=== PATIENT | female | born 1980 | race Caucasian/White ===

== ENCOUNTER 2020-09-11 07:54 | Outpatient (REF) | payer BC, SELFPAY ==
[2020-09-11 09:34] LABS: MANUAL DIFF FLAG NO
[2020-09-11 10:06] LABS: Basophils Percent Auto 0.6 % (0-2); Eosinophils Absolute Auto 0.1 X10*3/uL (0.0-0.4); Eosinophils Percent Auto 1.9 % (0-4); Hematocrit 41.1 % (37-47); Hemoglobin 13.3 g/dl (12.0-16.0); Imm Gran Abs Auto 0.01 X10*3/uL (0.00-0.03); Imm Gran Pct Auto 0.3 % (0.0-0.4); Lymphocytes Absolute Auto 1.4 X10*3/uL (1.2-4.9); Mean Corpuscular HGB Conc 32.4 g/dl (31.0-35.0); Mean Corpuscular Hemoglobin 29.6 pg (27.0-33.0); Mean Corpuscular Volume 91.5 fL (80-98); Mean Platelet Volume 9.9 fL (9.4-12.3); Monocytes Absolute Auto 0.3 X10*3/uL (0.1-1.2); Monocytes Percent Auto 9.3 % (2-11); Neutrophils Absolute Auto 1.5 X10*3/uL (2.0-8.3); Neutrophils Percent Auto 45.9 % (45-73); Platelet Count 228 X10*3/uL (160-400); Red Blood Count 4.49 X10*6/uL (4.20-5.50); Red Cell Distribution Width 12.2 % (11.0-16.0); White Blood Count 3.2 X10*3/uL (4.8-10.8)
[2020-09-11 10:22] LABS: Alanine Aminotransferase 25 U/L (0-31); Albumin Level 4.6 g/dL (3.5-5.0); Alkaline Phosphatase 70 U/L (39-117); Anion Gap 11 (12-20); Aspartate Amino Transferase 17 U/L (5-31); Bilirubin Total 0.7 mg/dL (0.0-1.0); Blood Urea Nitrogen 12 mg/dL (9-16); Calcium 9.6 mg/dL (8.4-10.2); Carbon Dioxide 25 mmol/L (22-29); Chloride 107 mmol/L (96-108); Cholesterol 179 mg/dL; Estimated Glomerular Filt Rate > 60; Glucose Fasting 95 mg/dL (60-99); HDL Cholesterol 40 mg/dL; Iron 87 mcg/dL (30-160); LDL Cholesterol Calculated 104 mg/dl; Percent Iron Saturation 24 % (15-50); Potassium 4.3 mmol/L (3.3-5.1); Sodium 139 mmol/L (135-145); Total Iron Binding Capacity 361 mcg/dL (228-428); Total Protein 7.4 g/dL (6.5-8.0); Triglycerides 176 mg/dL; Unsaturated Iron Binding 274 ug/dL
[2020-09-11 10:28] LABS: TSH reflex Free T4 1.24 uIU/mL (0.32-4.0)
== END 2020-09-11 07:55 | disposition home or self-care (01) ==
LOC: HO.LAB 07:54
PROVIDERS: Visit Provider Family Medicine
DX: Z00.00 Encounter for general adult medical examination without abnormal findings (principal)
CPT/HCPCS: 36415; 80053; 80061; 83540; 84443; 85025

== ENCOUNTER 2022-03-06 08:50 | Outpatient (REF) | payer BC, SELFPAY ==
--- NOTE | ~2022-03-06 | MM_ITS ---
EXAMINATION: MM SCREENING DIGITAL BREAST TOMOSYNTHESIS, BILATERAL CLINICAL INFORMATION: Screening. Asymptomatic. Age 41. No prior breast imaging. No known family history breast cancer. The lifetime risk of breast cancer based on the Tyrer-Cuzick Model is 12%. COMPARISON: None (current study represents initial baseline exam). TECHNIQUE: Digital breast tomosynthesis is performed in both the craniocaudal and mediolateral oblique views along with computer-aided detection (CAD). Synthesized 2D images are generated from the tomosynthesis. FINDINGS: There are scattered areas of fibroglandular density (ACR BI-RADS breast composition Category b). There are no significant masses, abnormal calcifications, or other abnormalities. Breast tissue composition borders. No architectural abnormality. The axilla and skin contours are unremarkable. MM/MM tomosynthesis screening BI IMPRESSION: No mammographic evidence of malignancy. ASSESSMENT: BI-RADS 1: Negative RECOMMENDATION: Routine annual mammography screening. This patient's information was entered into a reminder system with a target due date for their next mammogram.
== END 2022-03-06 08:51 | disposition home or self-care (01) ==
LOC: HO.MAMMO 08:50
PROVIDERS: Visit Provider Hospitalist
DX: Z12.31 Encounter for screening mammogram for malignant neoplasm of breast (principal)
CPT/HCPCS: 77063; 77067

== ENCOUNTER 2022-12-06 06:06 | Outpatient (REF) | payer BC, SELFPAY ==
[2022-12-08 22:44] LABS: TS Negative Control Passed; TS Panel A 1; TS Panel B 0; TS Positive Control Passed; TSpotTB Negative (Negative)
== END 2022-12-06 06:07 | disposition home or self-care (01) ==
LOC: HO.LAB 06:06
PROVIDERS: Absent Provider Nurse Practitioner Family; PCP Hospitalist; Visit Provider Hospitalist
DX: Z11.1 Encounter for screening for respiratory tuberculosis (principal)
CPT/HCPCS: 36415; 86481

== ENCOUNTER 2023-03-08 15:47 | Outpatient (AMB) | payer BC, SELFPAY ==
[2023-03-08 16:04] VITALS: BP 126/72; PULSE 89; O2SAT 98; BMI 30.6
--- NOTE | 2023-03-08 16:04 | A.OFFPC_ITS ---
Vital Signs 03/08/23 16:04 Height 5 ft 4 in Weight 178 lb 6 oz BMI 30.6 BP 126/72 Blood Pressure Location Lt brachial Position Sitting Pulse 89 Pulse Source Pulse Oximeter Pulse Oximetry (%) 98 Oxygen Delivery Method Room Air Intake Visit Reasons: Physical exam Intake Note: Patient is here for a physical, and has a cough for the last 2 days. Allergies No Known Allergies Allergy (Verified 03/08/23 16:05) Tobacco use date assessed: 03/08/23 Dental Screening Dental Screen Date: 03/08/23 Did you have a dental visit in the last 12 months?: Yes Did you have a dental problem in the last 6 months where you did not have access to dental care?: No Was dental information given to patient?: Patient has dentist HPI Physical exam HPI Details 42 y/o female presents for a CPE with f/ u labs and health maintenance. No recent labs to review. Pt has complaints of a cough. She reports R wrist discomfort and thinks it correlates with computer use. She denies any pain into her hands/fingers. PMHx: Healthy FHx: Brother: CAD Dad: Healthy. SocHx: Nonsmoker. EtOH 1-2x a month. No drugs. HPI Comments History of Present Illness Details Documentation assistance for Gonzalo Lal MD, was provided by Morgan Childs,? Terminal Operations Supervisor on 03/08/2023 4:42 PM EST. I, Dr. Lal, have read, observed, and verified documentation.? [facility] Family History Mother No problems noted. Father No problems noted. 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 1. Little interest or pleasure in doing things: not at all 2. Feeling down, depressed, or hopeless: not at all 3. Trouble falling or staying asleep, or sleeping too much: not at all 4. Feeling tired or having little energy: not at all 5. Poor appetite or overeating: not at all 6. Feeling bad about yourself - or that you are a failure or have let yourself or your family down: not at all 7. Trouble concentrating on things, such as reading the newspaper or watching television: not at all 8. Moving or speaking so slowly that other people could have noticed. Or the opposite - being so fidgety or restless that you have been moving around a lot more than usual: not at all 9. Thoughts that you would be better off or of hurting yourself in some way: not at all Total score: 0 Source: Developed by Drs. Rishabh Cartagena, Ruth Washington, Ryan Collins and colleagues, with an educational adore from [employer]. Thrive Questionnaire Date Thrive assessed: 03/08/23 I am a: Patient What is your living situation today?: I have a steady place to live Within the past 12 months, did the food you bought not last and you didn't have the money to get more?: Never true Within the past 12 months, did you worry whether your food would run out before you got money to buy more?: Never true Do you have trouble paying for medicines?: No Do you have trouble getting transportation to medical appointments?: No Do you have trouble paying your heating and electricity bill?: No Do you have trouble taking care of your child, family member or friend?: No Do you have trouble with day-to-day activities such as bathing, preparing meals, shopping, managing finances, etc.?: No Are you currently unemployed and looking for a job?: No Are you interested in more education?: No AUDIT C Alcohol Use Questionnaire (AUDIT-C) 1. How often do you have a drink containing alcohol?: Monthly or less 2. How many drinks containing alcohol do you have on a typical day when you are drinking?: 1 or 2 3. How often do you have six or more drinks on one occasion?: Never Total Score: 1 DANI-7 AMB Questionnaire DANI-7 Date DANI - 7 assessed: 03/08/23 Feeling nervous, anxious, or on edge: 0 = Not at all Not being able to stop or control worryin = Not at all Worrying too much about different things: 0 = Not at all Trouble relaxin = Not at all Being so restless that it is hard to sit still: 0 = Not at all Becoming easily annoyed or irritable: 0 = Not at all Feeling afraid as if something awful might happen: 0 = Not at all Total DANI-7 score (0-4 normal; 5-9 mild; 10-14 moderate; 15-21 severe): 0 Source: Developed by Drs. Rishabh Cartagena, Ruth Washington, Ryan Collins and colleagues, with an educational adore from [employer]. Review of Systems Const Denies chills, Denies fatigue, Denies fever(s), Denies headache(s) and Denies weakness Eyes Denies change in vision ENT Denies dizziness, Denies headache(s), Denies hearing loss, Denies nasal congestion, Denies sinus pain, Denies sinus pressure and Denies sore throat Card Denies chest pain, Denies lightheadedness, Denies dyspnea and Denies other (palpitations) Resp Reports cough, Denies dyspnea and Denies wheezing GI Denies abdominal pain, Denies melena, Denies hematochezia, Denies change in bowel habits, Denies dyspepsia and Denies nausea Denies hematuria and Denies dysuria Musc Details: R wrist pain Denies abnormal gait, Denies myalgias, Denies arthralgias, Denies numbness and Denies tingling Skin/Breast Denies rash, Denies unusual bruising and Denies wounds Neuro Denies abnormal gait, Denies dizziness, Denies headache(s), Denies memory loss, Denies numbness, Denies Sensory deficit (Neuro), Denies tingling and Denies weakness Psych Denies anxiety, Denies depression and Denies memory loss Endo Denies cold intolerance, Denies fatigue, Denies heat intolerance, Denies polydipsia and Denies polyuria Nam/Lymph Denies easy bleeding and Denies easy bruising Aller/Immun Denies wheezing Physical exam (Primary Care) Vital Signs: Last Vital Signs Pulse 89 03/08/23 16:04 BP 126/72 03/08/23 16:04 Pulse Ox 98 03/08/23 16:04 Oxygen Delivery Method Room Air 03/08/23 16:04 BMI result Body Mass Index 30.6 Tobacco/Smoking Status: Tobacco use Status Tobacco use date assessed 03/08/23 03/08/23 16:07 Patient Tobacco Use Status Never used Tobacco 03/08/23 16:07 e-Cigarette/Vaping Use Never Used 03/08/23 16:07 PHQ-9: PHQ-9 Score PHQ-9: Total score 0 03/08/23 16:25 Thrive Assessment: Date of Thrive Assessment Date Thrive assessed 03/08/23 03/08/23 16:17 Const General: no acute distress, well developed, alert and awake Nutritional Appearance: well nourished Orientation/consciousness: patient oriented x3 HENMT Head: Yes normocephalic and Yes atraumatic Ears: hearing grossly normal bilaterally and TM's normal bilaterally General nose exam: Normal external nose present and Normal nares present Mouth: Normal oral and palatal mucosa present and moist mucous membranes Teeth and gingiva: dentition normal Throat: Yes posterior oropharynx normal Eyes General: appearance normal, both eyes and all related structures Pupils: Equal, round and reactive pupils present and Pupil accommodation reflex normal EOM: EOMs intact bilaterally Neck Neck: Yes normal visual inspection, Yes no lymphadenopathy and Yes trachea midline Thyroid: Thyroid normal Carotids: no bruits Lymphatic: no lymphadenopathy noted Chest Chest palpation & inspection: normal inspection of the chest Resp Effort & Inspection: normal respiratory effort Auscultation: clear to auscultation bilaterally Cardio Rate: regular rate Rhythm: regular rhythm Heart sounds: S1 normal heart sound present, S2 normal heart sound present, no gallops, no murmurs and no rubs Bruits: no abdominal aortic bruits and no carotid bruits GI Palpation (GI): No Abdominal aortic bruit present, Soft to palpation, nontender, No hepatosplenomegaly present and No Rebound tenderness present Auscultation: normal bowel sounds General: Yes no CVA tenderness Back/Spine/Pelvis Back: no CVA tenderness Cervical Spine: cervical ROM normal and No Cervical spine tenderness Thoracic/Lumbar Spine: thoraco-lumbar ROM normal, No pain with thoraco-lumbar ROM, No thoracic spinal tenderness and No lumbar spinal tenderness Skin Lesions: no lesions Rashes: no rashes Trauma: no lacerations or abrasions Wounds: no wounds Nails: normal Neuro General: patient oriented x3 Cranial nerves: Yes Equal, round and reactive pupils present Cognition (Neuro): normal cognition Gait exam (Neuro): Normal gait present Motor exam (neuro): 5/5 motor strength present throughout Sensory Exam: No Sensory deficit (Neuro) Deep tendon reflexes (DTR's): Right patellar reflex intensity grade: 2+ and Left patellar reflex intensity grade: 2+ Extrem General: Yes normal to inspection and No edema Psych Appearance: grossly normal Affect: normal affect Attitude: cooperative Thought process: Normal thought process present Assessment and Plan Assessment & Plan (1) Annual physical exam: Code(s): Z00.00 - Encounter for general adult medical examination without abnormal findings Plan: 42-year-old?female?presents?for?complete?physical?exam Encouraged?healthy?diet?with?active?lifestyle?and?plenty?of?exercise (2) Right wrist pain: Code(s): M25.531 - Pain in right wrist Plan: Mild?circumferential?wrist?pain?with?use?of?keyboard?and?mouse?at?work. Encouraged?change?of?environment?or?work?tool She?can?also?try?support?with?a?wrist?brace?or?Jalen?bandage Encouraged?ibuprofen/NSAIDs?and?also?ice If?not?improving?she?can?let?me?know?and?we?melissa l?discuss?a?referral?to?occupational?therapy (3) Cough: Code(s): R05.9 - Cough, unspecified Plan: Mild?dry?cough No?fever No?nasal?congestion?or?postnasal?drip Lungs?are?clear. She?can?use?humidified?air Let?me?know?if?this?worsens (4) Breast cancer screening by mammogram: Code(s): Z12.31 - Encounter for screening mammogram for malignant neoplasm of breast Plan: Has?her?mammogram?scheduled (5) Screening for cervical cancer: Code(s): Z12.4 - Encounter for screening for malignant neoplasm of cervix Plan: Followed?by?her?solar photovoltaic designer?and?up-to-date (6) Tuberculosis screening: Code(s): Z11.1 - Encounter for screening for respiratory tuberculosis Plan: Recent?TB?screening?was?negative Orders: Orders Lipid Panel Today Z00.00 - Encounter for general adult medical examination without abnormal findings Microalbumin, Random (w Creat) Today I10 - Essential (primary) hypertension TSH reflex Free T4 Today Z00.00 - Encounter for general adult medical examination without abnormal findings Comprehensive [place]. Panel Fast Today Z00.00 - Encounter for general adult medical examination without abnormal findings UA and rflx microscopic Today Z00.00 - Encounter for general adult medical examination without abnormal findings Coding Level of Care Code Est Pt Level 3 (03804) Est Pt Prev Care 40-64y(76312) Diagnoses Annual physical exam Z00.00 Right wrist pain M25.531 Cough R05.9 Breast cancer screening by mammogram Z12.31 Screening for cervical cancer Z12.4 Tuberculosis screening Z11.1
== END 2023-03-08 16:46 | disposition home or self-care (01) ==
PROVIDERS: PCP Hospitalist; Visit Provider Family Medicine
DX: Z00.00 Encounter for general adult medical examination without abnormal findings (principal); M25.531 Pain in right wrist; R05.9 Cough, unspecified; Z12.31 Encounter for screening mammogram for malignant neoplasm of breast; Z12.4 Encounter for screening for malignant neoplasm of cervix; Z11.1 Encounter for screening for respiratory tuberculosis
CPT/HCPCS: 99396

== ENCOUNTER 2023-04-22 08:30 | Outpatient (REF) | payer BC, SELFPAY ==
[2023-04-22 10:49] LABS: Appearance Urine Clear; Color Urine Yellow; Glucose Urine UA Negative (Negative); Leukocyte Esterase Urine Moderate (2+) (Negative); Nitrite Urine Negative (Negative); PH 6.5 (5.0-9.0); Specific Gravity - Urine 1.025 (1.005-1.025); UMIC TRIGGER UA YES; Urine Blood Large (3+) (Negative); Urine Ketones Negative (Negative); Urine Protein Trace mg/dL (Neg-Trace)
[2023-04-22 10:52] LABS: Alanine Aminotransferase 17 U/L (0-31); Albumin Level 4.6 g/dL (3.5-5.0); Alkaline Phosphatase 66 U/L (39-117); Anion Gap 10 (12-20); Aspartate Amino Transferase 15 U/L (5-31); Bilirubin Total 0.9 mg/dL (0.0-1.0); Blood Urea Nitrogen 16 mg/dL (9-16); Calcium 9.6 mg/dL (8.4-10.2); Carbon Dioxide 27 mmol/L (22-29); Chloride 107 mmol/L (96-108); Cholesterol 198 mg/dL (<200); Estimated Glomerular Filt Rate > 60; Glucose Fasting 100 mg/dL (60-99); HDL Cholesterol 38 mg/dL (>40); LDL Cholesterol Calculated 125 mg/dL (<100); Potassium 4.3 mmol/L (3.3-5.1); Sodium 140 mmol/L (135-145); Total Protein 7.7 g/dL (6.5-8.0); Triglycerides 175 mg/dL (<150)
[2023-04-22 11:10] LABS: TSH reflex Free T4 0.83 uIU/mL (0.32-4.0)
[2023-04-22 11:18] LABS: Bacteria Urine Trace (None Seen); Hyaline Casts Urine 0-2 /LPF (0-2); RBC Urine >20 /HPF (0-2); WBC Urine 21-50 /HPF (0-5)
[2023-04-22 11:29] LABS: Creatinine Urine 155.35 mg/dL; Microalbum/Creatinine Ratio Ur 30.8 ug/mg cr (<30)
== END 2023-04-22 08:31 | disposition home or self-care (01) ==
LOC: HO.LAB 08:30
PROVIDERS: PCP Family Medicine; Visit Provider Family Medicine
DX: Z00.00 Encounter for general adult medical examination without abnormal findings (principal); I10 Essential (primary) hypertension
CPT/HCPCS: 36415; 80053; 80061; 81001; 82043; 82570; 84443

== ENCOUNTER → 2023-05-14 08:15 | Outpatient (BNV) | payer BC, SELFPAY | PROVIDERS: PCP Family Medicine; Visit Provider Radiology Diagnostic Radiology | DX: Z12.31 Encounter for screening mammogram for malignant neoplasm of breast (principal) | CPT/HCPCS: 77063; 77067 ==

== ENCOUNTER 2023-05-14 08:43 | Outpatient (REF) | payer BC, SELFPAY | END 2023-05-14 08:44 | disposition home or self-care (01) | LOC: HO.MAMMO 08:43 | PROVIDERS: PCP Family Medicine; Visit Provider Family Medicine | DX: Z12.31 Encounter for screening mammogram for malignant neoplasm of breast (principal) | CPT/HCPCS: 77063; 77067 ==

== ENCOUNTER 2023-06-29 15:44 | Outpatient (AMB) | payer BC, SELFPAY ==
--- NOTE | 2023-06-29 15:42 | A.OFFPC_ITS ---
Intake Visit Reasons: Follow up cpe lab Appliance Technician Required: No Allergies No Known Allergies Allergy (Verified 06/29/23 15:43) Tobacco use date assessed: 03/08/23 Dental Screening Dental Screen Date: 03/08/23 Did you have a dental visit in the last 12 months?: Yes Did you have a dental problem in the last 6 months where you did not have access to dental care?: No Was dental information given to patient?: Patient has dentist HPI Follow up cpe lab HPI Details 42 y/o female presents to f/u CPE-labs v ia telemedicine. Labs were drawn 04/22/23. Reviewed labs with pt. Elevated fasting glucose of 100. Triglycerides 175. TC 198. LDL 125. HDL low at 38. Microalb/Creat ratio 30.8. Trace urine bacteria seen. She denies any symptoms. Pt notes urine samle was given during period. Asymptomatic Mammogram in May was fine. [facility] Family History Mother No problems noted. Father No problems noted. 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 Rishabh Cartagena, Ruth Washington, Ryan Collins and colleagues, with an educational adore from [employer]. Review of Systems Const Denies chills, Denies fatigue, Denies fever(s), Denies headache(s) and Denies weakness ENT Denies dizziness and Denies headache(s) Card Denies dyspnea Resp Denies cough, Denies dyspnea, Denies wheezing and Denies other (shortness of breath) Musc Denies numbness and Denies tingling Neuro Denies dizziness, Denies headache(s), Denies numbness, Denies tingling and Denies weakness Psych Denies anxiety and Denies depression Endo Denies fatigue Aller/Immun Denies wheezing Physical exam (Primary Care) Tobacco/Smoking Status: Tobacco use Status Tobacco use date assessed 03/08/23 06/29/23 15:43 Patient Tobacco Use Status Never used Tobacco 06/29/23 15:43 e-Cigarette/Vaping Use Never Used 06/29/23 15:43 Thrive Assessment: Date of Thrive Assessment Date Thrive assessed 03/08/23 06/29/23 15:43 Telehealth Telehealth Location of provider rendering services: practice address Location of patient: other Patient Identification confirmed using: Name, : Yes Telehealth method: voice only Patient verbally consented to treatment: Yes Patient verbally consented to billing insurance company: Yes Patient informed of any privacy concerns related to visit: Yes Minutes spent on Phone/Video with Pt.: 5 Assessment and Plan Assessment & Plan (1) Microalbuminuria: Code(s): R80.9 - Proteinuria, unspecified Plan: Likely?due?to?increase?cellularity?in?urine?sample?as?this?maryellen ple?was?given?during?her?period.??She?is?asymptomatic.??Renal?function?was?hiren l. (2) Elevated fasting glucose: Code(s): R73.01 - Impaired fasting glucose Plan: Fasting?blood?sugar?100 Will?repeat?with?her?next?blood?draw Encouraged?diet?lower?in?sugars?and?starches (3) Low HDL (under 40): Code(s): E78.6 - Lipoprotein deficiency Plan: Encouraged?exercise (4) Breast cancer screening by mammogram: Code(s): Z12.31 - Encounter for screening mammogram for malignant neoplasm of breast Plan: Mammogram?negative?for?malignancy.??We?will?continue?annual?screening Orders: Orders Lipid Panel Today Z00.00 - Encounter for general adult medical examination without abnormal findings UA and rflx microscopic Today Z00.00 - Encounter for general adult medical examination without abnormal findings Comprehensive [place]. Panel Fast Today Z00.00 - Encounter for general adult medical examination without abnormal findings Complete Blood Count Auto Diff Today Z00.00 - Encounter for general adult medical examination without abnormal findings Microalbumin, Random (w Creat) Today I10 - Essential (primary) hypertension TSH reflex Free T4 Today Z00.00 - Encounter for general adult medical examination without abnormal findings Hemoglobin A1c Today R73.01 - Impaired fasting glucose Coding Level of Care Code Tele Est Pt Level 2 (06175) Diagnoses Microalbuminuria R80.9 Elevated fasting glucose R73.01 Low HDL (under 40) E78.6 Breast cancer screening by mammogram Z12.31
== END 2023-06-29 16:17 | disposition home or self-care (01) ==
LOC: HO.HMGFM 15:44
PROVIDERS: PCP Family Medicine; Visit Provider Family Medicine
DX: R80.9 Proteinuria, unspecified (principal); R73.01 Impaired fasting glucose; E78.6 Lipoprotein deficiency; Z12.31 Encounter for screening mammogram for malignant neoplasm of breast
CPT/HCPCS: 99441

== ENCOUNTER 2024-07-24 09:04 | Outpatient (REF) | payer BC, SELFPAY | END 2024-07-24 09:05 | disposition home or self-care (01) | LOC: HO.MAMMO 09:04 | PROVIDERS: Visit Provider Family Medicine | DX: Z12.31 Encounter for screening mammogram for malignant neoplasm of breast (principal) | CPT/HCPCS: 77063; 77067 ==

== ENCOUNTER → 2024-07-24 09:15 | Outpatient (BNV) | payer BC, SELFPAY | PROVIDERS: Visit Provider Internal Medicine | DX: Z12.31 Encounter for screening mammogram for malignant neoplasm of breast (principal) | CPT/HCPCS: 77063; 77067 ==

== ENCOUNTER 2024-09-26 12:49 | Outpatient (REF) | payer BC, SELFPAY ==
--- NOTE | ~2024-09-26 | MM_ITS ---
EXAMINATION: MM DIAGNOSTIC DIGITAL BREAST TOMOSYNTHESIS, RIGHT Limited right breast ultrasound. CLINICAL INFORMATION: Call back from screening for asymmetry in the superior right breast on MLO view posterior depth. COMPARISON: Mammography: [facility] on PACS. TECHNIQUE: Digital breast tomosynthesis is performed in both the craniocaudal and mediolateral oblique views along with computer-aided detection (CAD). Synthesized 2D images are generated from the tomosynthesis. FINDINGS: The breasts are heterogeneously dense, which may obscure small masses (ACR BI-RADS breast composition Category c). Asymmetry in the superior right breast middle to posterior depth on MLO view persists on additional imaging projections and partially effaces. No suspicious calcifications or other abnormal findings. Targeted color Doppler ultrasound scanning in the superior breast from 1020 1:00 demonstrates a hypoechoic oval circumscribed patch of normal fibronodular breast tissue versus mass at 10:00 8 cm from nipple measuring 14 x 6 x 19 mm. This area looks more like it could be a probable part of normal dense fibronodular breast tissue. There is no internal vascular flow. MM/MM tomosynthesis added views R IMPRESSION: Asymmetry superior right breast posterior depth on MLO view with questionable correlate of a patch of normal follicular breast tissue versus mass at 10:00 8 cm from the nipple. Recommend 6 month follow-up mammogram and ultrasound for further evaluation of stability. ASSESSMENT: BI-RADS BI-RADS 3 - Probably benign finding(s) - 6 month follow-up suggested RECOMMENDATION: 6 Month F/U Results were provided to the patient at time of visit by the technologist. This patient's information was entered into a reminder system with a target due date for their next mammogram. Electronically signed by: Crystal Sinclair DO 09/26/2024 02:12 PM EDT
== END 2024-09-26 12:50 | disposition home or self-care (01) ==
LOC: HO.MAMMO 12:49
PROVIDERS: PCP Family Medicine; Visit Provider Family Medicine
DX: N64.89 Other specified disorders of breast (principal)
CPT/HCPCS: 76642; 77061; 77065

== ENCOUNTER → 2024-09-26 13:00 | Outpatient (BNV) | payer BC, SELFPAY | PROVIDERS: PCP Family Medicine; Visit Provider Internal Medicine | DX: N60.21 Fibroadenosis of right breast (principal) | CPT/HCPCS: 76642; 77061; 77065 ==

== ENCOUNTER 2025-04-05 08:08 | Outpatient (REF) | payer BC, SELFPAY ==
--- NOTE | ~2025-04-05 | MM_ITS ---
EXAMINATION(S): 1. MM DIAGNOSTIC DIGITAL BREAST TOMOSYNTHESIS, RIGHT 2. TARGETED ULTRASOUND OF THE RIGHT BREAST CLINICAL INFORMATION: This is a 6-month follow-up of asymmetry in the upper breast posterior depth on the MLO view with questionable correlate of a patchy of normal breast tissue or mass at 10 o'clock position 8 cm from the nipple on the ultrasound. COMPARISON: Comparison made to multiple prior, most recent right diagnostic mammogram on September 26, 2024, and most remote March 06, 2022. TECHNIQUE: Digital breast tomosynthesis is performed in both the mediolateral oblique and craniocaudal views along with computer-aided detection (CAD). Synthesized 2D images are generated from the tomosynthesis. FINDINGS: BREAST COMPOSITION: The breasts are heterogeneously dense, which may obscure small masses. RIGHT BREAST: Previously described asymmetry in the upper breast posterior depth on the MLO view is not significantly changed from September 2024. No new mammographic findings. Targeted ultrasound of the right breast was performed at the location of the previously described sonographic finding. The survey shows a similar hypoechoic area at 10 o'clock position at 8 cm from the nipple with overall measurements of 2.2 x 0.8 x 1.4 cm. Prior measurements were 1.9 x 1.4 x 0.6 cm; mild differences in measurements is likely due to difference in caliber position. No internal vascularity demonstrated with color or power Doppler evaluation. MM/MM tomosynthesis diagnostic RT IMPRESSION: RIGHT BREAST: Asymmetry in the upper breast posterior depth on the MLO view with a questionable correlate of a patchy of normal breast tissue or mass at 10 o'clock position 3 cm from the nipple, not significantly changed from September 2024. Probably benign. A short-term follow-up is recommended as bilateral diagnostic mammogram and right breast ultrasound expected in July 2025. ASSESSMENT: BI-RADS: Category 3: Probably benign RECOMMENDATION: 6 Month F/U Results were provided to the patient at time of visit by the technologist. This patient's information was entered into a reminder system with a target due date for their next mammogram. Electronically signed by: Jackie Bowman MD 04/05/2025 08:58 AM [facility] [place]
== END 2025-04-05 08:09 | disposition home or self-care (01) ==
LOC: HO.MAMMO 08:08
PROVIDERS: Visit Provider Family Medicine
DX: N64.89 Other specified disorders of breast (principal)
CPT/HCPCS: 76642; 77061; 77065

== ENCOUNTER → 2025-04-05 08:30 | Outpatient (BNV) | payer BC, SELFPAY | PROVIDERS: Visit Provider Radiology Body Imaging | DX: R92.8 Other abnormal and inconclusive findings on diagnostic imaging of breast (principal) | CPT/HCPCS: 76642; 77061; 77065 ==